=== PATIENT | male | born 1975 | race Caucasian/White ===

== ENCOUNTER 2016-10-17 10:43 | Emergency (ER) | payer OTHER ==
[~2016-10-17] VITALS: Ht 175.3 cm; Wt 179.0 kg
[~2016-10-17 10:43] MED LIST: HYDR-3240 PO; ONDA4TAB10 PO
[2016-10-17] MEDS ORDERED: KETOROLAC 30 MG/1 ML ONE (13:15)
[2016-10-17] MEDS ORDERED: DIPHENHYDRAMINE 50 MG/ML, 1ML ONE (13:15)
[2016-10-17] MEDS ORDERED: METOCLOPRAMIDE 5 MG/ML, 2ML ONE (13:15)
[2016-10-17] MEDS ORDERED: DIPHENHYDRAMINE 50 MG/ML, 1ML IVPush ONE (13:30)
[2016-10-17] MEDS ORDERED: METOCLOPRAMIDE 5 MG/ML, 2ML IVPush ONE (13:30)
[2016-10-17] MEDS ORDERED: SODIUM CHLORIDE 0.9% 1,000ML IVBOLUS ONE (13:30)
[2016-10-17] MEDS ORDERED: SODIUM CHLORIDE FLUSH 10ML SYR IVF ONE (13:30)
[2016-10-17] MEDS ORDERED: KETOROLAC 30 MG/1 ML IVPush ONE (13:30)
[2016-10-17] MEDS ORDERED: DEXAMETHASONE 4 MG/ML, 5ML ONE (14:59)
[2016-10-17] MEDS ORDERED: DEXAMETHASONE 4 MG/ML, 1ML IVPush ONE (15:00)
[2016-10-17 15:13] VITALS: BP 123/76
== END 2016-10-17 15:15 | disposition home or self-care (01) ==
LOC: ED 15:09
DX: G43.111 Migraine with aura, intractable, with status migrainosus (principal); I10 Essential (primary) hypertension; E66.9 Obesity, unspecified
CPT/HCPCS: 96361; 96374; 96375; 99285; J1100; J1200; J1885; J2765; J7030

== ENCOUNTER 2017-01-02 11:35 | Emergency (ER) | payer OTHER ==
[~2017-01-02] VITALS: Ht 177.8 cm; Wt 184.4 kg
[2017-01-02] MEDS ORDERED: PROCHLORPERAZINE 5 MG/ML, 2ML IVPush ONE (12:30)
[2017-01-02] MEDS ORDERED: DIPHENHYDRAMINE 50 MG/ML, 1ML IVPush ONE (12:30)
[2017-01-02] MEDS ORDERED: ONDANSETRON 2MG/ML, 2ML IVPush ONE (12:30)
[2017-01-02] MEDS ORDERED: DIAZEPAM 5 MG/ML, 2ML IVPush ONE (12:30)
[2017-01-02] MEDS ORDERED: SODIUM CHLORIDE FLUSH 10ML SYR IVF ONE (12:30)
[2017-01-02] MEDS ORDERED: SODIUM CHLORIDE 0.9% 1,000ML IVBOLUS ONE (12:30)
[2017-01-02] MEDS ORDERED: KETOROLAC 30 MG/1 ML IVPush ONE (12:30)
[2017-01-02] MEDS ORDERED: ONDANSETRON 2MG/ML, 2ML ONE (12:31)
[2017-01-02] MEDS ORDERED: PROCHLORPERAZINE 5 MG/ML, 2ML ONE (12:31)
[2017-01-02] MEDS ORDERED: KETOROLAC 30 MG/1 ML ONE (12:31)
[2017-01-02] MEDS ORDERED: DIPHENHYDRAMINE 50 MG/ML, 1ML ONE (12:31)
[2017-01-02] MEDS ORDERED: DIAZEPAM 5 MG/ML, 10ML VIAL IVPush ONE (13:00)
[2017-01-02 14:56] LABS: HEMATOCRIT 49.5 % (39.2-51.8); HEMOGLOBIN 16.3 g/dL (13.7-18.0); WHITE BLOOD COUNT 11.4 x10^3/uL (3.4-10)
[2017-01-02 15:08] VITALS: BP 123/74
[2017-01-02 15:08] LABS: BLOOD UREA NITROGEN 10 mg/dL (7-18)
== END 2017-01-02 15:10 | disposition home or self-care (01) ==
LOC: ED 12:38
DX: G43.811 Other migraine, intractable, with status migrainosus (principal); I10 Essential (primary) hypertension
CPT/HCPCS: 36415; 80048; 82040; 85025; 85610; 85730; 96361; 96374; 96375; 99284; J0780; J1200; J1885; J2405; J3360; J7030